=== PATIENT | male | born 1975 | race Caucasian/White ===

== ENCOUNTER 2019-08-22 22:58 | Emergency (ER) | payer OTHER ==
[~2019-08-22] VITALS: Ht 177.8 cm; Wt 78.5 kg
[2019-08-22 23:26] VITALS: BP_SYST 128
--- NOTE | 2019-08-22 23:37 | NUR ---
Patient to ER bed 04 to gown for evaluation. Side rails up. Report given to Jessica SCHAEFER.
--- NOTE | 2019-08-23 00:30 | NUR ---
Pt brought in by . Pt a/ox4. Pt states that he has abdominal pain, and clavicle pain after gallbladder surgery today. Pt states that he is unable to sit up, or down for any extended period of time as it causes intense pain. Pt states that he has no additional chest pain, SOB, N/V, Diarrhea, dizziness or blurred vision. Pt states that he also is very anxious and thinks he may be having a panic attack in conjunction with his pain. Pt denies any other medical complaint at this time. Pt sitting on side of bed. Pt appears to be in moderate discomfort. Vss, will continue to monitor
[2019-08-23 00:40] LABS: BILIRUBIN,URINE NEGATIVE (NEGATIVE); BLOOD, URINE NEGATIVE (NEGATIVE); CLARITY/URINE CLEAR (CLEAR); COLOR,URINE YELLOW (YELLOW); GLUCOSE,URINE NEGATIVE (NEGATIVE); KETONES,URINE 1+ (NEGATIVE); LEUKOCYTE ESTERASE ,URINE NEGATIVE (NEGATIVE); NITRITE, URINE NEGATIVE (NEGATIVE); PROTEIN URINE NEGATIVE (NEGATIVE); UROBILINOGEN,URINE 0.2 (0.2-1.0)
--- NOTE | 2019-08-23 00:45 | NUR ---
ER at bedside examining patient.
[2019-08-23 00:50] LABS: BASOPHILS % (AUTO) 0.1 % (0.0-2.0); HEMATOCRIT 37.5 % (36-54); HEMOGLOBIN 12.9 g/dL (14.0-18.0); LYMPHOCYTES # (AUTO) 0.7 K/uL (1.0-5.5); LYMPHOCYTES % (AUTO) 4.9 % (20.5-51.5); MEAN CORPUSCULAR HEMOGLOBIN 30 pg (27-31); MEAN CORPUSCULAR HGB CONC 34 % (32-36); MEAN CORPUSCULAR VOLUME 87 fL (79.0-98.0); MONOCYTES # (AUTO) 0.8 K/uL (0.0-1.0); MONOCYTES % (AUTO) 5.7 % (1.7-9.3); NEUTROPHILS # (AUTO) 13.2 K/uL (1.8-7.7); NEUTROPHILS % (AUTO) 89.3 % (40.0-70.0); PLATELET COUNT (AUTO) 325 K/uL (130-430); RED BLOOD CELL COUNT(AUTO) 4.33 MIL/uL (4.2-6.2); RED CELL DISTRIBUTION WIDTH 13.2 % (9.0-15.0); WHITE BLOOD COUNT (AUTO) 14.7 K/uL (4.8-10.8)
[2019-08-23] MEDS ORDERED: ONDANSETRON HCL 4 MG/2 ML VIAL IVP ONE ×3 (01:00→10:15)
[2019-08-23] MEDS ORDERED: NACL 0.9% 1,000 ML IV ONE ×2 (01:00→05:00)
[2019-08-23] MEDS ORDERED: MORPHINE 4 MG/ML INJ. SYRINGE IVP ONE ×2 (01:00→10:15)
[2019-08-23 01:01] LABS: CALCIUM 9.2 mg/dL (8.4-11.0); CREATININE 1.01 mg/dL (0.55-1.30); POTASSIUM 4.4 mmol/L (3.5-5.1)
--- NOTE | 2019-08-23 01:34 | NUR ---
Pt given pain medication, Pt Tolerated well. Pt requested anti-nausea medication to be administered alongside. Both administered, pt tolerated well
--- NOTE | 2019-08-23 02:04 | NUR ---
Pt Fluids monitored, Pain re-assesed. Pt states pain has decreased and is more tolerable. Pt resting in bed comfortably. Provided additional blanket
[2019-08-23] MEDS ORDERED: KETAMINE 30 MG/3 ML SYRINGE IVP ONE (02:15)
[2019-08-23] MEDS ORDERED: fentaNYL CITRATE/PF 100 MCG/2 ML AMP IVP ONE (02:15)
--- NOTE | 2019-08-23 02:57 | NUR ---
Pt Given Pain medication. Pt re-connected to manager cardiac cath after pt had removed leads. Pt tolerated well
--- NOTE | 2019-08-23 03:27 | NUR ---
Pt Pain Re-evaluated. Pt stated significant pain relief. Pt resting comfortably in bed. Pt stated he would like to sleep, but the ER is too busy/noisy. Pt appears to be in no distress at this time. Pt states he feels like pain is more abdominal gas at this time.
[2019-08-23] MEDS ORDERED: OMEP20TA20 PO (04:23)
[2019-08-23] MEDS ORDERED: PIPERACILLIN/TAZO 3.375 GM in NS 50 ML IV ONE (05:00)
[2019-08-23] MEDS ORDERED: IOHEXOL 100 ML IV ONE (05:47)
--- NOTE | 2019-08-23 05:48 | NUR ---
Patient went to CT in stable condition.
--- NOTE | 2019-08-23 06:07 | NUR ---
patient returned from CT in stable condition.
[2019-08-23] MEDS ORDERED: PIPERACILLIN/TAZOBACTAM 3.375 GM/VIAL (ZOSYN) IV ONE (06:21)
[2019-08-23] MEDS ORDERED: MORPHINE 4 MG/ML INJ. SYRINGE IM ONE (06:30)
[2019-08-23] MEDS ORDERED: ONDANSETRON HCL 4 MG/2 ML VIAL ONE (06:46)
--- NOTE | 2019-08-23 07:03 | NUR ---
Report received from OLIVE Paiz for continuation of care.
--- NOTE | 2019-08-23 07:04 | NUR ---
Report given to OLIVE [place]. All care endorsed.
[2019-08-23 07:50] LABS: HEMATOCRIT 30.5 % (36-54); HEMOGLOBIN 10.6 g/dL (14.0-18.0)
--- NOTE | 2019-08-23 08:30 | NUR ---
Dr. Astudillo is at bedside talking to patient.
--- NOTE | 2019-08-23 09:30 | NUR ---
DR. DE LA CRUZ AT BEDSIDE SEEING THE PATIENT.
[2019-08-23 09:55] LABS: HEMATOCRIT 30.8 % (36-54); HEMOGLOBIN 10.8 g/dL (14.0-18.0)
[2019-08-23 10:10] LABS: PROTHROMBIN TIME 10.4 SECS (9.5-12.5)
--- NOTE | 2019-08-23 10:15 | NUR ---
Patient to be transferred to [facility] telemetry room 363. Is being transferred due to higher level of care. Receiving facility has accepting physician and available space. ER physician has signed transfer form. Patient or responsible green party has agreed to transfer and signed form. Patient belongings inventoried and will be sent with patient. Copy of nursing notes, lab reports, EKG, Physicians Orders and X-rays to be sent with patient. Report called to OLIVE Mays at receiving facility. Receiving physician is Dr. Snowden. [facility] ambulance service has been called for transfer. ETA is 75 minutes.
--- NOTE | 2019-08-23 11:32 | NUR ---
Report given to OLIVE Baires for continuation of care.
--- NOTE | 2019-08-23 11:48 | NUR ---
Pt transferred to [facility] via [facility] in stable condition. Report was called to facility.
[2019-08-23 11:50] VITALS: BP_SYST 138
== END 2019-08-23 11:50 | disposition short-term general hospital (02) ==
LOC: SED 22:58
DX: K91.840 Postprocedural hemorrhage of a digestive system organ or structure following a digestive system procedure (principal)
CPT/HCPCS: 36415; 71045; 74177; 80053; 81003; 83605; 84484; 85018; 85025; 85610; 85730; 86886; 86900; 86901; 93005; 96365; 96375; 96376; 99285; J2270; J2405; J2543; J3010; J7030 ×2; Q9967; 87040-TC